=== PATIENT | female | born 1950 | race Caucasian/White ===

== ENCOUNTER 2022-05-26 17:57 | Emergency (ER) | payer MEDICARE, SELFPAY ==
[2022-05-26 18:01] VITALS: BP 167/97; PULSE 90; RESP 18; TEMP 36.4; O2SAT 99; BMI 18.4
--- NOTE | 2022-05-26 18:27 | CRLHL7_ITS ---
For Patients: As a result of the Century Cures Act, medical imaging exams and procedure reports are released immediately into your electronic medical record. You may view this report before your referring provider. If you have questions, please contact your health care provider. Indication: Trauma. Technique: Left knee, 3 views. Comparison: None. Findings/Impression: Bones: Alignment is normal. No displays fractures or bone lesions. Subtle irregularity along the medial proximal tibia below the knee joint, favored to be chronic in etiology. Recommend correlation for tiny nondisplaced fracture. Joint spaces: Unremarkable. Soft tissues: Unremarkable. Dictated by Topher Castillo MD @ 05/26/2022 6:55:15 PM (Electronically Signed)
--- NOTE | 2022-05-26 18:57 | ED.GENADULT ---
HPI - General Adult General Chief complaint: Extremity Pain/Injury, Lower Stated complaint: Left Knee injury, Fall Time Seen by Provider: 05/26/22 18:18 Source: patient Mode of arrival: EMS History of Present Illness HPI narrative: Patient presents to the emergency department after a fall in her home. She reports that this morning at around 10:00 a.m, she slipped on her top step, falling onto her bent knee. She has had pain ever since. She reports that she last took some Tylenol about 2-1/2 hours ago, did not improve her pain. Maximum area of pain is along the medial joint line per her report. No lacerations, did not hit her head. She states that she was recently prescribed blood thinners, has not yet begun taking them. She was told that she has AFib. Reports no other injuries from the fall. No recent fevers, illness, chest pain or other changes. She called EMS, as the pain was not well managed and she lives alone. She initially told me that she tolerates pain medication fine. I offered oral oxycodone while we waited for x-ray and she initially agreed. When the nurse went in to give her the oxycodone, she told the nurse that it makes her nauseated and she wanted something else. I offered Zofran but was unable to reassess the patient at the time, patient declined. She asked to speak with me again. At this point I sent something was unusual and requested records from [facility]. This clearly shows that she was in an emergency department in [place] yesterday requesting pain medication and that she also received 45 oxycodone less than a week ago from her primary care provider. By the time I confronted the patient, her x-rays have now returned are thankfully normal. We discussed how I will not be giving her any pain medication and that she is misusing her oxycodone she was given and it would be illegal for me to dispense her further narcotics as we have documentation from 2 different health systems of her misuse. Thankfully, she did not have any behavioral escalations and was understanding of my recommendations. Reports a history of AFib and hypertension, these are not documented in her [facility] records. Denied use of any prescription pain medication or the potassium she was given yesterday. Reports that her only home medications are an unknown blood thinner and metoprolol. States than that she has not yet actually started taking the blood thinner. I cannot find it in any records. Denies alcohol or illicit drug use. Social history reviewed from [facility] is negative for other generalized, cardiac or skin, musculoskeletal or respiratory changes besides described as above Related Data Allergies Allergy/AdvReac Type Severity Reaction Status Date / Time aspirin Allergy Verified 05/26/22 18:00 ibuprofen Allergy Verified 05/26/22 18:00 Penicillins Allergy Verified 05/26/22 18:00 PFSH PFS Social History Smoking Status: Never smoker Do you use any of these nicotine containing products: None Second hand tobacco smoke exposure: No How often do you have a drink containing alcohol: 2-4 times a month How many standard drinks containing alcohol do you have on a typical day: 1 or 2 How often do you have six or more drinks on one occasion: Never AUDIT-C Alcohol total score: 2 Non-prescribed substance use: denies use service: No Exam Const: Vital Signs, click to edit/add: Vital Signs - 24 hr 05/26/22 18:01 Temperature 97.6 F Pulse Rate [Pulse Oximeter] 90 Respiratory Rate 18 Blood Pressure [Le ft Upper Arm] 167/97 H Pulse Oximetry 99 Oxygen Delivery Me thod Room Air Documenting provider has reviewed patient's vital signs: yes Common normals: no apparent distress General appearance: cooperative and well kempt HENMT: Common normals: normocephalic and head/scalp atraumatic Head and scalp: normocephalic and atraumatic Face and sinus: normal facial exam Mouth: oral and palatal mucosa normal Throat: posterior oropharynx normal Eye: Other: Pupils equal, normal visual tracking. Resp: Common normals: normal respiratory effort, no use of accessory muscles and clear to auscultation bilaterally Effort & inspection: able to speak in complete sentences Auscultation: clear to auscultation bilaterally Cardio: Common normals: regular rate, regular rhythm, S1 normal heart sound, S2 normal heart sound, no murmurs and peripheral pulses 2+ throughout Rate: regular rate Rhythm: regular rhythm Heart sounds: S1 normal and S2 normal Peripheral pulses: pulses 2+ throughout Extremity: Other: Right knee with normal range of motion, no swelling or effusion. The left knee has a very mild amount of swelling but no bruising. There is mild tenderness on the medial joint line, no other areas. Varus and valgus maneuvers are negative. No ligamentous instability. Normal flexion and extension. No deformity. Normal patella. No tenderness over patella tendon, tibial plateau or femoral condyles. Psych: Common normals: speech normal Appearance: well kempt Attitude: engaged Activity/motor behavior: appropriate eye contact Speech: normal speech Insight: insight good Skin: Common normals: no rashes or lesions noted Narrative: No signs of injury or trauma of any kind. General skin exam: no rashes or lesions noted Course Vital Signs Vital signs: Initial Vital Signs Temperature 97.6 F 05/26/22 18:01 Temperature Source Temporal Artery Scan 05/26/22 18:01 Pulse Rate 90 05/26/22 18:01 Pulse Rhythm 05/26/22 18:01 Respiratory Rate 18 05/26/22 18:01 Blood Pressure 167/97 H 05/26/22 18:01 Blood Pressure Mean 120 05/26/22 18:01 Blood Pressure Position Supine 05/26/22 18:01 Pulse Oximetry 99 05/26/22 18:01 Oxygen Delivery Method 05/26/22 18:01 Vital Signs Temperature 97.6 F 05/26/22 18:01 Pulse Rate 90 05/26/22 18:01 Respiratory Rate 18 05/26/22 18:01 Blood Pressure 167/97 H 05/26/22 18:01 Pulse Oximetry 99 05/26/22 18:01 Oxygen Delivery Method 05/26/22 18:01 Temperature 97.6 F 05/26/22 18:01 Pulse Rate 90 05/26/22 18:01 Respiratory Rate 18 05/26/22 18:01 Blood Pressure 167/97 H 05/26/22 18:01 Pulse Oximetry 99 05/26/22 18:01 Oxygen Delivery Method 05/26/22 18:01 Medical Decision Making MDM Narrative Medical decision making narrative: Patient confronted regarding her narcotic use. Explained my rationale why I will not be giving her any narcotic pain medication. She actually did not put up a fight regarding this. She requests a taxi to get home. I offer crutches, she accepts. She is instructed on use of Tylenol, ice and rest. Crutches as needed follow-up with primary care in 1 week if not improving. X-ray findings reassuring. Imaging Data knee x-ray: My impression: Normal Radiologist's impression: Findings/Impression: Bones: Alignment is normal. No displays fractures or bone lesions. Subtle irregularity along the medial proximal tibia below the knee joint, favored to be chronic in etiology. Recommend correlation for tiny nondisplaced fracture. Joint spaces: Unremarkable. Soft tissues: Unremarkable. Discharge Plan Discharge Clinical Impression: Left knee sprain Patient Disposition: Home, Self-Care Condition: Stable Instructions: Knee Sprain (DC) Additional Instructions: Thankfully, there are no signs of any fracture or major injury in your left knee. This is great news. You have been given crutches to help you get around. Continue taking Tylenol 650 mg every 4 hours as needed for pain, maximum of 4000 mg per day. We will not be giving any narcotic pain medication. It appears as though you were given 45 tablets of oxycodone less than a week ago. You were seen in the emergency department in [place] yesterday claiming to be out of your pain medication. It is illegal for me to give you pain medication now. You have misused these and you should be honest with your primary care provider. Follow-up with your primary care provider in 1 week to recheck your knee. Activity Level: Activity as Tolerated Discharge Diet: Regular Stand Alone Forms: Intention Technology Info Instructions
--- NOTE | 2022-05-26 19:10 | ED.NURSE ---
RN contacted taxi to [facility] pick[facility] patient. Cindy victoria coming to burr picker patient within 30 minutes.
--- NOTE | 2022-05-26 19:22 | ED.NURSE ---
MD ordered PO pain medication, oxycodone pt states it makes me throw up. updated, MD ordered antiemetic/ zofran. Went back into pt room, pt stated she wanted something through her IV. updated and discussed with pt at bedside. Pt refused oral medication and is going to discharge home.
== END 2022-05-26 19:41 | disposition home or self-care (01) ==
LOC: ED 19:33
PROVIDERS: Emergency Provider Family Medicine
DX: S83.92XA Sprain of unspecified site of left knee, initial encounter (principal); W10.9XXA Fall (on) (from) unspecified stairs and steps, initial encounter
CPT/HCPCS: 73562; 99283; 99284